=== PATIENT | female | born 1955 | race Caucasian/White ===

== ENCOUNTER 2018-03-20 15:52 | Outpatient (CLI) | payer MEDICAID ==
[~2018-03-20 15:52] MED LIST: CARI250T PO; CLON-527 PO; EMTR1TAB; MORP100C17 PO; MORPHINE 30 MG PO; PROM25TA14 PO; RAYATAZ; RITO100C7 PO
== END 2018-03-20 23:59 | disposition home or self-care (01) ==
LOC: RAD 15:52
PROVIDERS: ATTEND Physician Assistant Medical
DX: R00.1 Bradycardia, unspecified (principal); F11.20 Opioid dependence, uncomplicated; Z87.891 Personal history of nicotine dependence
CPT/HCPCS: 93005